=== PATIENT | male | born 1985 | race Caucasian/White ===

== ENCOUNTER 2025-09-16 06:21 | Emergency (ER) | payer OTHER, SELFPAY ==
[~2025-09-16] VITALS: Ht 177.8 cm; Wt 90.9 kg
[2025-09-16] MEDS ORDERED: TEST1INJ3 (07:36)
[2025-09-16 08:36] VITALS: TEMP 97.5
[2025-09-16] MEDS ORDERED: DICL20GE TP (08:40)
[2025-09-16] MEDS ORDERED: NAPR-837 PO (08:40)
[2025-09-16 08:50] VITALS: BP 154/97; O2SAT 96
== END 2025-09-16 08:57 | disposition home or self-care (01) ==
LOC: M ED 06:21
DX: M79.622 Pain in left upper arm (principal); Z79.1 Long term (current) use of non-steroidal anti-inflammatories (NSAID); Z79.899 Other long term (current) drug therapy